=== PATIENT | female | born 1980 | race Caucasian/White ===

== ENCOUNTER 2016-11-21 20:46 | Emergency (ER) | payer OTHER ==
[2016-11-21 20:54] VITALS: BP 124/86; PULSE 89; TEMP 98.9; BMI 22.6
--- NOTE | 2016-11-21 22:34 | PDOC ---
[id number] 4d LBP Time Seen by Provider: 11/21/16 20:50 - History of Present Illness Initial Comments: This 36-year-old woman with no significant past medical history and only mild back pain in the past, presents with a one-day history of persistent lower back pain, right greater than left. Pain is worse with twisting and hyperextension of the back. Patient remembers having discomfort when she lifted heavy stroller into her SUV earlier today. Later on, as she lifted her toddler, pain worsened. She denies pain/paresthesias/numbness in her legs or buttocks. No previous history of significant back pain She denies falling or any other trauma. She has not had fevers/hematuria/dysuria or urinary frequency. There is no abdominal discomfort present. No history of difficulty with urination or defecation. No history of groin/ perineal numbness Past History - Past Medical History Allergies/Adverse Reactions: Allergies Allergy/AdvReac Type Severity Reaction Status Date / Time No Known Allergies Allergy Verified 11/21/16 20:48 Home Medications: Ambulatory Orders Diclofenac Sodium [Voltaren -] 75 mg PO BID PRN #14 tablet. 11/21/16 Oxycodone HCl/Acetaminophen [Percocet 5-325 mg Tablet] 1 tab PO Q6H PRN #6 tablet MDD 4 tabs 11/21/16 Tizanidine HCl [Zanaflex (Nf) -] 2 mg PO TID PRN #12 tablet 11/21/16 Other medical history: DENIES - Immunization History Td Vaccination: Yes Immunization Up to Date: Yes - Psycho/Social/Smoking Cessation Hx Anxiety: No Suicidal Ideation: No Smoking Status: No Smoking History: Never smoked Number of Cigarettes Smoked Daily: 0 Hx Alcohol Use: No Drug/Substance Use Hx: No Substance Use Type: None *Physical Exam - Vital Signs Last Vital Signs Temp Pulse Resp BP Pulse Ox 98.9 F 89 16 124/86 100 11/21/16 20:48 11/21/16 20:48 11/21/16 20:48 11/21/16 20:48 11/21/16 20:48 - Physical Exam Comments: GENERAL: The patient is awake, alert, and fully oriented, in moderate distress. Vital signs as noted. HEAD: Normal with no signs of trauma. EYES: Pupils equal, round and reactive to light, extraocular movements intact, sclera anicteric, conjunctiva clear with no pallor. ENT: moist mucous membranes. Ears normal, nares patent, oropharynx clear without exudates. NECK: Normal range of motion, supple without lymphadenopathy, JVD, or masses. LUNGS: Breath sounds equal, clear to auscultation bilaterally. No wheeze/ crackles. HEART: Regular rate and rhythm, normal S1 and S2 without murmur or rub. ABDOMEN: Soft/nontender/nondistended. BS wnl. No guarding or rebound. No palpable masses. No hepatosplenomegaly. EXTREMITIES: Normal range of motion, no edema. No clubbing or cyanosis. No cords, erythema, or tenderness. BACK: Tenderness paraspinal muscles bilateral lower lumbar spine; pain reproduced with flexion and lateral rotation Positive straight leg raising pain on at 30 on right NEUROLOGICAL: Cranial nerves II through XII grossly intact. Normal speech, normal gait. PSYCH: Normal mood, normal affect. SKIN: Warm, Dry, normal turgor, no rashes or lesions noted. Medical Decision Making - Medical Decision Making Patient has significant improvement in pain after 60 mg of Toradol IM. Patient now able to sit without severe pain. Use of anti-inflammatory medication as well as muscle relaxants discussed with the patient. Patient will have prescriptions for diclofenac 75 mg twice a day, tizanidine 2 mg up to 3 times a day sent to her pharmacy. She will receive Flexeril 10 mg now. Patient is very concerned about her level of alertness while caring for her young child. Since her will be taking care of her toddler overnight, she will take muscle relaxant now in order to sleep soundly. Patient asked for prescription for "strong" medication to be used as needed for severe pain. Patient is advised that she will not be able to participate in any activities requiring careful attention while taking narcotic medication. Patient understands this and states that she will have family or friends take care of her child if she needs to take strong pain medication Prescription for Percocet 5/325 (#6) transmitted to patient's pharmacy. Patient followed by Dr. Perla Deshpande for general medicine; she should follow- up with her if she has persistent pain for further guidance regarding orthopedic or physical therapy consultation. She should return to the ER if she has severe, persistent pain, or weakness/numbness of her legs *DC/Admit/Observation/Transfer Diagnosis at time of Disposition: Lumbosacral strain Qualifiers: Encounter type: initial encounter Qualified Code(s): S39.012A - Strain of muscle, fascia and tendon of lower back, initial encounter - Discharge Dispostion Disposition: HOME Condition at time of disposition: Stable - Prescriptions Prescriptions: Oxycodone HCl/Acetaminophen [Percocet 5-325 mg Tablet] 1 tab PO Q6H PRN #6 tablet MDD 4 tabs PRN Reason: Severe Pain Diclofenac Sodium [Voltaren -] 75 mg PO BID PRN #14 tablet. PRN Reason: Back Pain Tizanidine HCl [Zanaflex (Nf) -] 2 mg PO TID PRN #12 tablet PRN Reason: Muscle Spasms - Referrals Referrals: Perla Deshpande MD [Non Staff, Medical] - - Patient Instructions Printed Discharge Instructions: Low Back Pain Additional Instructions: local warmth to area avoid strenuous activity for the next several days Diclofenac 75mg(anti-inflammatory) twice a day as needed Tizanidine 2mg up to 3 X day for muscle spasms Percocet 5/325 as needed for severe pain return to ER if you have severe, persistent pain followup with Dr Deshpande within 1 week
[2016-11-21] MEDS ORDERED: KETOROLAC TROMETHAMINE 60 MG/2 ML VIAL IM ONE (22:42)
[2016-11-21] MEDS ORDERED: KETOROLAC TROMETHAMINE 60 MG/2 ML VIAL ONE (22:46)
[2016-11-21] MEDS ORDERED: CYCLOBENZAPRINE HCL 10 MG TABLET (FP) PO ONE (23:48)
[2016-11-21] MEDS ORDERED: CYCLOBENZAPRINE HCL 10 MG TABLET (FP) ONE (23:58)
== END 2016-11-22 00:06 | disposition home or self-care (01) ==
LOC: FER 20:46
PROC: 3E0233Z Introduction of Anti-inflammatory into Muscle, Percutaneous Approach (ICD-10-PCS; principal; 2016-11-21)
DX: S39.012A Strain of muscle, fascia and tendon of lower back, initial encounter (principal); X58.XXXA Exposure to other specified factors, initial encounter; Y93.9 Activity, unspecified; Y92.9 Unspecified place or not applicable
CPT/HCPCS: 99282-25

== ENCOUNTER 2018-01-11 22:28 | Emergency (ER) | payer OTHER ==
[2018-01-11 22:31] VITALS: BP 104/68; PULSE 72; TEMP 98.9; BMI 21.2
--- NOTE | 2018-01-11 22:38 | PDOC ---
History of Present Illness - General Chief Complaint: Sore Throat Stated Complaint: SORE THROAT Time Seen by Provider: 01/11/18 22:30 - History of Present Illness Initial Comments: 01/11/18 22:38 This otherwise healthy 37-year-old woman presents with a few day history of myalgias/sore throat/cough/mild nausea/subjective fever with 1 day history of worsening throat pain and white patches on tonsils. Patient states that her family ( and 3 children ages 20 months through 8 years) has had recurrent febrile illnesses for the last several weeks. Also, she was in contact with an adult friend with strep pharyngitis approximately one week ago. Patient has had strep pharyngitis July 2017. Patient believes she has had mononucleosis in the past. Patient is a nonsmoker and has no history of asthma or other chronic respiratory illness. Other than OTC flu medication (eg,Dayquil) and ibuprofen, the patient is taking no medications for her symptoms. She is able to consume fluids such as edgar zee and soup without vomiting No significant past medical history No daily medications No known ALLERGIES Patient denies smoking, daily alcohol use, other recreational drug use Past History - Past Medical History Allergies/Adverse Reactions: Allergies Allergy/AdvReac Type Severity Reaction Status Date / Time No Known Allergies Allergy Verified 11/21/16 20:48 Home Medications: Ambulatory Orders NK [No Known Home Medication] 01/11/18 COPD: No - Immunization History Td Vaccination: Yes Immunization Up to Date: Yes - Suicide/Smoking/Psychosocial Hx Smoking Status: No Smoking History: Never smoked Number of Cigarettes Smoked Daily: 0 Hx Alcohol Use: No Drug/Substance Use Hx: No Substance Use Type: None Review of Systems - Review of Systems Able to Perform ROS?: Yes Comments:: 12 point review of systems is negative except for what is noted in the history of present illness *Physical Exam - Vital Signs Last Vital Signs Temp Pulse Resp BP Pulse Ox 98.9 F 72 16 104/68 100 01/11/18 22:29 01/11/18 22:29 01/11/18 22:29 01/11/18 22:29 01/11/18 22:29 - Physical Exam Comments: GENERAL: Adult female, alert and oriented 3 in no acute distress HEAD: Normal with no signs of trauma. EYES: PERRLA, EOMI, sclera anicteric, conjunctiva clear. ENT: Ears normal, nares patent, oropharynx erythematous with scattered whitish exudates on mildly edematous tonsils. Dry mucous membranes. NECK: Normal range of motion, supple with mild lymphadenopathy bilaterally, JVD , or masses. LUNGS: Breath sounds equal, clear to auscultation bilaterally. No wheezes, and no crackles. HEART:Regular rate and rhythm, normal S1 and S2 without murmur, rub or gallop. ABDOMEN:.normal bowel sounds No guarding,tenderness or rebound.No masses No distention. EXTREMITIES: Normal range of motion, no edema. No clubbing or cyanosis. No erythema, or tenderness. NEUROLOGICAL: Cranial nerves II through XII grossly intact. Normal speech. No focal neurological deficits. MUSCULOSKELETAL: Back non-tender to palpation, no CVA tenderness SKIN: Warm, Dry, normal turgor, no rashes or lesions noted. Medical Decision Making - Medical Decision Making Quick strep negative; throat culture and sensitivity pending. *DC/Admit/Observation/Transfer Diagnosis at time of Disposition: Viral syndrome Pharyngitis Qualifiers: Pharyngitis/tonsillitis etiology: unspecified etiology Qualified Code(s): J02.9 - Acute pharyngitis, unspecified - Discharge Dispostion Disposition: HOME Condition at time of disposition: Stable - Referrals Referrals: Perla Deshpande MD [Primary Care Provider] - - Patient Instructions Printed Discharge Instructions: DI for Pharyngitis/Tonsillopharyngitis -- Adult Additional Instructions: Drink plenty of fluids Ibuprofen/naproxen/acetaminophen as needed for pain or fever Saltwater gargle as needed for sore throat Return here or see if you have persistent severe sore throat or high fever - Post Discharge Activity
== END 2018-01-11 23:07 | disposition home or self-care (01) ==
LOC: FER 22:28
DX: J02.9 Acute pharyngitis, unspecified (principal); B34.9 Viral infection, unspecified
CPT/HCPCS: 87070; 87430; 99281-25

== ENCOUNTER 2023-02-20 10:40 | Emergency (ER) | payer OTHER ==
[2023-02-20] MEDS ORDERED: KETOROLAC TROMETHAMINE 30 MG/1 ML VIAL IVPUSH ONE (10:53)
[2023-02-20] MEDS ORDERED: SODIUM CHLORIDE 1,000 ML IV STA (10:53)
[2023-02-20] MEDS ORDERED: KETOROLAC TROMETHAMINE 30 MG/1 ML VIAL ONE (10:56)
[2023-02-20 11:14] VITALS: BP 132/78; PULSE 78; RESP 18; TEMP 99.1; BMI 23.0
[2023-02-20 11:29] LABS: HEMATOCRIT 36.9 % (32.4-45.2); MCH 25.8 pg (25.7-33.7); MCHC 32.4 g/dl (32.0-36.0); MEAN CELL VOLUME 79.7 fl (80-96); MEAN PLT VOLUME 9.7 fl (7.5-11.1); PLATELET COUNT 265.9 10^3/uL (134-434); RBC 4.63 10^6/uL (3.60-5.2); RDW 17.2 % (11.6-15.6); WHITE BLOOD COUNT 6.5 10^3/uL (4.0-10.8)
[2023-02-20 11:33] LABS: ALBUMIN 4.6 g/dl (3.4-5.0); BILIRUBIN,TOTAL 0.5 mg/dl (0.2-1); BLOOD UREA NITROGEN 14.5 mg/dl (7-18); CALCIUM 9.7 mg/dl (8.5-10.1); CREATININE 0.8 mg/dl (0.6-1.3); POTASSIUM 3.9 mmol/L (3.5-5.1); SGPT/ALT 10.8 U/L (7-52); TOT PROT 7.7 g/dl (6.4-8.2)
[2023-02-20 12:15] LABS: PLATELET ESTIMATE ADEQUATE
== END 2023-02-20 13:36 | disposition home or self-care (01) ==
LOC: FER 10:40
PROC: 3E0333Z Introduction of Anti-inflammatory into Peripheral Vein, Percutaneous Approach (ICD-10-PCS; principal; 2023-02-20)
PROC: 3E0337Z Introduction of Electrolytic and Water Balance Substance into Peripheral Vein, Percutaneous Approach (ICD-10-PCS; 2023-02-20)
DX: R10.32 Left lower quadrant pain (principal); R11.2 Nausea with vomiting, unspecified; N23 Unspecified renal colic
CPT/HCPCS: 36415; 76775-TC; 80053; 81003; 81015; 85027; 99284-25

== ENCOUNTER 2024-10-11 17:35 | Emergency (ER) | payer OTHER ==
[2024-10-11 17:53] VITALS: BP 115/65; PULSE 78; RESP 18; TEMP 98.1; BMI 20.3
[2024-10-11 18:01] LABS: HCG,QUALITATIVE URINE Negative
[2024-10-11] MEDS ORDERED: IBUPROFEN 600 MG TABLET (FP) PO ONE (18:09)
[2024-10-11] MEDS ORDERED: IBUPROFEN 400 MG TABLET (FP) PO ONE (18:10)
[2024-10-11] MEDS: IBUPROFEN 600 MG TABLET (FP) PO ONE (18:12)
[2024-10-11 18:13] LABS: HEMATOCRIT 33.6 % (32.4-45.2); MCH 24.8 pg (25.7-33.7); MCHC 32.8 g/dl (32.0-36.0); MEAN CELL VOLUME 75.5 fl (80-96); MEAN PLT VOLUME 9.6 fl (7.5-11.1); PLATELET COUNT 238.5 10^3/uL (134-434); RBC 4.45 10^6/uL (3.60-5.2); RDW 16.7 % (11.6-15.6); WHITE BLOOD COUNT 9.6 10^3/uL (4.0-10.8)
[2024-10-11 18:25] LABS: ANISOCYTOSIS 2+
[2024-10-11 18:35] LABS: CALCIUM 9.6 mg/dl (8.5-10.1); CREATININE 0.7 mg/dl (0.6-1.3); POTASSIUM 4.2 mmol/L (3.5-5.1)
== END 2024-10-11 19:55 | disposition home or self-care (01) ==
LOC: FER 17:35
DX: N23 Unspecified renal colic (principal); N20.0 Calculus of kidney; R10.9 Unspecified abdominal pain
CPT/HCPCS: 36415; 76775-TC; 80048; 81003; 84703; 85027; 87086; 99284-25